=== PATIENT | female | born 1985 | race Caucasian/White ===

== ENCOUNTER 2018-09-11 10:13 | Inpatient (IN) | payer OTHER ==
[~2018-09-11] VITALS: Ht 175.2 cm; Wt 94.1 kg
--- NOTE | ~2018-09-11 | EKG ---
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
--- NOTE | ~2018-09-11 | EKG ---
[place], [place] ELECTROCARDIOGRAM REPORT NAME: ALICIA ARANA UNIT #: [id number] ROOM: 530 DOCTOR: ROBERT DRAFT REPORT BIRTHDATE: [birth year] [facility] Test Date: 2018-09-11 Test Time: 10:42:13 Pat Name: ALICIA ARANA Department: Room: 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
--- NOTE | ~2018-09-11 | EKG ---
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
--- NOTE | ~2018-09-11 | EKG ---
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
[2018-09-11 10:15] VITALS: BP 128/78
[2018-09-11 10:41] LABS: BASO % 0.2 % (0.0-1.0); EOS % 0.1 % (1.0-4.0); HEMATOCRIT 40.1 % (37.0-47.0); LYMPH # 1.8 10*3/uL (1.3-4.4); LYMPH % 17.1 % (27.0-41.0); MEAN CELL VOLUME 74.3 fl (81.0-99.0); MEAN CORPUSCULAR HGB 22.2 pg (27.0-31.0); MEAN CORPUSCULAR HGB CONC 29.9 g/dl (33.0-37.0); MEAN PLATELET VOLUME 9.3 fl (9.6-12.3); MONO # 0.6 10*3/uL (0.1-1.0); MONO % 5.9 % (3.0-9.0); NEUT # 7.9 10*3/uL (2.3-7.9); NEUT % 76.3 % (47.0-73.0); PLATELET COUNT AUTOMATED 330 10*3/uL (130-400); RED CELL DISTRI WIDTH 17.2 % (0-14.5); WHITE BLOOD COUNT 10.3 10*3/uL (4.8-10.8)
[2018-09-11 10:55] LABS: ALBUMIN 3.3 gm/dl (3.1-4.5); ALKALINE PHOSPHATASE 102 U/L (45-117); BUN 16 mg/dl (7-24); CHLORIDE 107 mmol/L (98-107); CREATININE 0.75 mg/dL (0.55-1.02); POTASSIUM 4.2 mmol/L (3.5-5.1); SGOT/AST 35 IU/L (3-35); SGPT/ALT 70 U/L (12-78); SODIUM 138 mmol/L (136-145); TOTAL PROTEIN 7.4 gm/dL (6.4-8.2)
[2018-09-11 11:19] LABS: BETA-HCG, QUANT < 1.0 mIU/mL (1-3)
[2018-09-11 11:25] LABS: BILIRUBIN NEGATIVE (NEGATIVE); BLOOD NEGATIVE (NEGATIVE); CLARITY SL CLOUDY (CLEAR); COLOR YELLOW (YELLOW); GLUCOSE NEGATIVE (NEGATIVE); KETONE NEGATIVE (NEGATIVE); LEUKO ESTERASE NEGATIVE (NEGATIVE); NITRITE NEGATIVE (NEGATIVE); SPECIFIC GRAVITY 1.025 (1.005-1.030); UROBILINOGEN 0.2 E.U./dl (0.2-1.0)
--- NOTE | 2018-09-11 11:25 | NUR ---
32 year old FEMALE admitted to room # 530 for stabilization. 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 Compliant with admission procedure. Patient denies any anxiety, but is unable to sit still, taps toes to floor continuously, looks about room, unable to focus eyes on nurse during interview. See assessment forms for additional information about patient status.
[2018-09-11 11:34] LABS: URINE AMPHETAMINES < 1000 (1000ng/ml); URINE BARBITURATES < 200 (200ng/ml); URINE BENZODIAZEPINES < 200 (200ng/ml); URINE CANNABINOIDS (THC) > 50 (50ng/ml); URINE COCAINE > 300 (300ng/ml); URINE METHADONE < 300 (300ng/ml); URINE OPIATES > 300 (300ng/ml)
[2018-09-11 11:36] LABS: URINE PHENCYCLIDINE < 25 (25ng/ml)
[2018-09-11 11:44] LABS: BACTERIA 1+; WBC 0-2 wbc/hpf (0-5)
[2018-09-11 11:48] VITALS: BP 120/75
--- NOTE | 2018-09-11 12:55 | NUR ---
PT IN HYSTERICS, CRYING HAVING SEVERE WITHDRAWAL SYMPTOMS, PROFUSELY SWEATING, ANXIETY, NAUSEA, BODY ACHES. MEDICATED WITH VISTARIL, ZOFRAN, ROBAXIN AND SCHEDULED SUBUTEX. PROVIDED TOWELS AND ENCOURAGED PT TO SIT IN SHOWER UNDER COOL SPRAY TO TRY TO RELAX.
--- NOTE | 2018-09-11 13:40 | NUR ---
[facility] STAFF FOLLOWED UP WITH PATIENT. PATIENT MEETS [facility]. PATIENT IS UNDECIDED ABOUT AFTERCARE AT THIS TIME. [facility] STAFF WILL PROVIDE REFERRALS OPTIONS TO PATIENT. [facility] STAFF WILL FOLLOW BACK UP WITH PATIENT. NIKKI MEHTA B.A. TRACTOR OPERATOR BATTERY
--- NOTE | 2018-09-11 14:12 | NUR ---
PT RESTING SOMEWHAT MORE COMFORTABLY, IN LOBBY WITH VISITOR. EARLIER MEDICATIONS MILDLY EFFECTIVE.
--- NOTE | 2018-09-11 14:30 | NUR ---
CALLED INTO PT'S ROOM, PT IN HYSTERICS AGAIN, HYPERVENTILATING. ASKING IF SHE IS EVER GOING TO FEEL NORMAL, STATING SHE WANTS TO LEAVE, BUT KNOWS SHE SHOULDN'T ASKING IF THERE IS ANYTHING ELSE SHE CAN TAKE TO HELP HER RELAX. UPDATED DR ALVAREZ ON PT'S STATUS.
--- NOTE | 2018-09-11 14:46 | NUR ---
DR ALVAREZ IN TO SEE PT AT THIS TIME.
[2018-09-11 15:58] VITALS: BP 140/85
--- NOTE | 2018-09-11 16:30 | NUR ---
DR SAMS IN TO SEE PT AT THIS TIME.
--- NOTE | 2018-09-11 16:45 | NUR ---
LIME TRIMMER APPLIED PER ORDER.
[2018-09-11 20:00] VITALS: BP 119/69
--- NOTE | 2018-09-11 20:50 | NUR ---
PT. GIVEN ATIVAN, BENTYL, DESYREL, REQUIP, ROBAXIN, AND VISTARIL ORDERED FOR ANXIETY, ABD CRAMPING, MUSCLE ACHES, AND INSOMNIA ORDERED AT 2049. VERY ANXIOUS AT TIMES. CHANTELLE HAWTHORNE RN
--- NOTE | 2018-09-11 21:47 | NUR ---
PT. SLEEPING, ALL OF THE PREVIOUS MEDS EFFECTIVE.
[2018-09-12] VITALS: BP 139/79
--- NOTE | 2018-09-12 03:18 | NUR ---
ROBAXIN, BENTYL, ATIVAN AND VISTARIL GIVEN ORDERED FOR ANXIETY, ABD CRAMPING AND MUSCLE ACHES. CHANTELLE HAWTHORNE RN
--- NOTE | 2018-09-12 03:37 | NUR ---
PT. SLEEPING, PREVIOUS MEDS EFFECTIVE.
[2018-09-12 08:00] VITALS: BP 139/80
--- NOTE | 2018-09-12 08:29 | NUR ---
PATIENT WANTS TO FOLLOW UP WITH AA/NA MEETINGS IN HER LOCAL AREA. [place] STAFF WILL PROVIDE A LIST IN HER AREA. NIKKI MEHTA B.A. STRICKLER ATTENDANT
--- NOTE | 2018-09-12 09:31 | NUR ---
PT MEDICATED WITH VISTARIL FOR ANXIETY, ROBAXIN FOR MUSCLE ACHES AND BENTYL FOR ABD CRAMPS WILL MONITOR
--- NOTE | 2018-09-12 11:05 | NUR ---
PT STATES THAT PRN MEDS HELPED A LITTLE. PT REQUESTED AND GIVEN ATIVAN FOR ANXIETY WILL MONITOR
[2018-09-12 12:00] VITALS: BP 125/82
--- NOTE | 2018-09-12 13:16 | NUR ---
PATIENT IS GOING TO FOLLOW UP WITH [facility] IN [place] FOR OUTPATIENT TREATMENT. PATIENT'S APPOINTMENT IS August AT 11AM. NIKKI MEHTA B.A. FUNERAL ASSISTANT
--- NOTE | 2018-09-12 14:19 | NUR ---
PT RESTING IN BED. EYES CLOSED. ATIVAN APPEARS TO BE EFFECTIVE. WILL MONITOR
--- NOTE | 2018-09-12 15:16 | NUR ---
PT REQUESTED AND GIVEN BENTYL FOR ABD CRAMPS, ROBAXIN FOR MUSCLE ACHES AND VISTARIL FOR ANXIETY WILL MONITOR
[2018-09-12 16:00] VITALS: BP 138/84
--- NOTE | 2018-09-12 16:43 | NUR ---
PT RESTING IN BED, EYES CLOSED. BENTYL , ROBAXIN AND VISTARIL APPEAR EFFECTIVE. WILL MONITOR
--- NOTE | 2018-09-12 17:15 | NUR ---
PT REQUESTED AND GIVEN ATIVAN FOR C/O ANXIETY WILL MONITOR
--- NOTE | 2018-09-12 18:33 | NUR ---
PT STATES THAT ATIVAN IS HELPING WILL MONITOR
[2018-09-12 20:00] VITALS: BP 137/75
[2018-09-13] VITALS: BP 120/74
[2018-09-13 08:00] VITALS: BP 134/65
--- NOTE | 2018-09-13 11:00 | NUR ---
ASSUMED PATIENT CARE AT THIS TIME. PATIENT AWAKE AND ALERT TALKING WITH BOYFRIEND AT THIS TIME. PATIENT C/O ANXIETY AND GETTING READY TO GET IN SHOWER AT THIS TIME. NO OTHER SIGNS OF WITHDRAWL NOTED. WILL CONTINUE TO MONITOR.
[2018-09-13 12:00] VITALS: BP 124/76
--- NOTE | 2018-09-13 13:14 | NUR ---
PATIENT REQUESTING MEDICATON FOR ANXIETY, RESTLESSNESS, AND MUSCLE CRAMPS. VISTERIL, ROBAXIN AND REQUIP ADMINISTERED PRESCRIBED. WILL MONITOR FOR EFFECTIVENESS.
--- NOTE | 2018-09-13 14:14 | NUR ---
PATIENT RESTING WITH EYES CLOSED AT THIS TIME. STATES THAT ANXIETY IS ALITTLE BETTER. WILL CONTINUE TO MONITOR.
[2018-09-13 16:00] VITALS: BP 132/84
[2018-09-13 20:00] VITALS: BP 122/69
--- NOTE | 2018-09-13 21:00 | NUR ---
PT STATES THAT PRN MEDS WERE EFFECTIVE. NO FURTHER C/O VOICED.
--- NOTE | 2018-09-13 22:21 | NUR ---
PT MEDICATED WITH ATIVAN AND TRAZADONE PER REQUEST FOR C/O ANXIETY/INSOMNIA. PT SITTING UP IN BED ON CELLPHONE AT THIS TIME.
[2018-09-14] VITALS: BP 115/74
[2018-09-14 08:00] VITALS: BP 119/60
[2018-09-14] MEDS ORDERED: ATARAX,VISTARIL50 MG PO (08:59)
[2018-09-14] MEDS ORDERED: ZOFRAN 4 MG ED2 TAB PO (08:59)
[2018-09-14] MEDS ORDERED: DICYCLOMINE HCL20 MG PO (08:59)
--- NOTE | 2018-09-14 10:53 | NUR ---
Discharge instructions reviewed with patient/family. Patient receptive and verbalizes understanding. Follow-up care arranged. Written instructions given to patient/family. Patient ambulated from unit with all personal belongings. She is aware that she is to follow up with outpatient therapy and her pcp one week post discharge. YINKA BATRES
== END 2018-09-14 10:53 | disposition home or self-care (01) | DRG 897 ==
LOC: ED 10:13 → 5E 10:46 → EDHOLD 10:46 → 5E 10:51
PROVIDERS: Emergency Medicine; ADMIT Internal Medicine
DX: F11.23 Opioid dependence with withdrawal (principal); E44.1 Mild protein-calorie malnutrition; R73.9 Hyperglycemia, unspecified; B19.20 Unspecified viral hepatitis C without hepatic coma; F41.9 Anxiety disorder, unspecified; R71.8 Other abnormality of red blood cells; F17.210 Nicotine dependence, cigarettes, uncomplicated; E66.09 Other obesity due to excess calories; Z71.6 Tobacco abuse counseling; Z68.30 Body mass index [BMI] 30.0-30.9, adult; Z82.5 Family history of asthma and other chronic lower respiratory diseases